=== PATIENT | male | born 1955 | race Native Hawaiian/Other Pacific Islander ===

== ENCOUNTER 2017-01-25 08:20 | Emergency (ER) | payer OTHER ==
[~2017-01-25] VITALS: Ht 167.6 cm; Wt 104.3 kg
[2017-01-25 08:23] VITALS: TEMP 97.8
[2017-01-25] MEDS ORDERED: WARF5TAB6 PO (08:47)
[2017-01-25] MEDS ORDERED: K-TAB20 MEQ PO (08:48)
[2017-01-25] MEDS ORDERED: LIPITOR10 MG PO (08:49)
[2017-01-25] MEDS ORDERED: LANOXIN 0.120.125 M1 OR (08:50)
[2017-01-25] MEDS ORDERED: CARV12.5 PO (08:50)
[2017-01-25] MEDS ORDERED: PACERONE200 MG OR (08:54)
[2017-01-25 08:57] LABS: PLATELET COUNT 197 K/uL (142-355)
[2017-01-25 09:08] LABS: POTASSIUM 4.2 mmol/L (3.6-5.2); SODIUM 140 mmol/L (136-145)
[2017-01-25 09:32] VITALS: BP 121/92
== END 2017-01-25 09:45 | disposition home or self-care (01) ==
LOC: ED 08:20
DX: I50.9 Heart failure, unspecified (principal); I48.91 Unspecified atrial fibrillation; I44.7 Left bundle-branch block, unspecified
CPT/HCPCS: 36415; 80053; 81000; 83880; 85027; 93005; 99283

== ENCOUNTER 2017-08-19 19:05 | Inpatient (IN) | payer OTHER ==
[~2017-08-19] VITALS: Ht 152.4 cm; Wt 98.6 kg
[~2017-08-19 19:05] MED LIST: CARV12.5 PO; K-TAB20 MEQ PO; LANOXIN 0.120.125 M1 OR; LIPITOR10 MG PO; PACERONE200 MG OR; WARF5TAB6 PO
[2017-08-19 19:11] VITALS: BP 109/86; TEMP 97.9
[2017-08-19] MEDS ORDERED: FUROSEMIDE40 MG PO (19:23)
[2017-08-19] MEDS ORDERED: OMEPRAZOLE20 M2 PO (19:24)
[2017-08-19 19:47] LABS: PLATELET COUNT 192 K/uL (142-355)
[2017-08-19 19:56] LABS: POTASSIUM 4.3 mmol/L (3.6-5.2)
[2017-08-19 23:00] VITALS: BP 109/88
[2017-08-19 23:53] VITALS: BP 112/91; TEMP 97.7; Ht 152.4 cm; Wt 98.6 kg
[2017-08-20] VITALS (18 sets, daily range): BP systolic 90–137; BP diastolic 56–87; TEMP 97–98.9
[2017-08-20 06:42] LABS: POTASSIUM 3.5 mmol/L (3.6-5.2); SODIUM 138 mmol/L (136-145)
[2017-08-21 04:00] VITALS: BP 113/79; TEMP 97.9
[2017-08-21 07:52] LABS: POTASSIUM 3.9 mmol/L (3.6-5.2)
[2017-08-21 07:57] VITALS: BP 109/83; TEMP 97.6
[2017-08-21 11:51] VITALS: BP 93/73; TEMP 97.8
[2017-08-21 16:00] VITALS: BP 97/66; TEMP 97.6
[2017-08-21 20:00] VITALS: BP 86/58; TEMP 97.6
[2017-08-21 23:57] VITALS: BP 100/70; TEMP 97.7
[2017-08-22 04:00] VITALS: BP 98/70; TEMP 97.6
[2017-08-22 07:52] VITALS: BP 114/78; TEMP 97.6
[2017-08-22 10:36] LABS: PLATELET COUNT 197 K/uL (142-355)
[2017-08-22 12:22] VITALS: BP 96/62; TEMP 97.3
[2017-08-22 16:00] VITALS: BP 93/71; TEMP 97.5
[2017-08-22 20:00] VITALS: BP 96/68; TEMP 97.5
[2017-08-23] VITALS: BP 100/70; TEMP 97.7
[2017-08-23 04:00] VITALS: BP 95/71; TEMP 98.8
[2017-08-23 07:41] VITALS: BP 107/81; TEMP 97.7
== END 2017-08-23 12:40 | disposition home or self-care (01) | DRG 293 ==
LOC: ED 19:05 → ICU 21:00 → MED/SURG 08-20 14:45
PROVIDERS: Specialist
DX: I50.31 Acute diastolic (congestive) heart failure (principal); I48.91 Unspecified atrial fibrillation; I10 Essential (primary) hypertension
CPT/HCPCS: 36415; 36600; 80048; 80053; 82550; 82805; 83735; 83880; 84443; 84484; 85027; 85610; 94760; 96372; 96374; 99285; J1940; J3430

== ENCOUNTER 2017-08-28 11:35 | Inpatient (IN) | payer OTHER ==
[~2017-08-28] VITALS: Ht 162.6 cm; Wt 98.0 kg
[~2017-08-28 11:35] MED LIST changes: +FUROSEMIDE40 MG PO; +OMEPRAZOLE20 M2 PO
[2017-08-28 11:45] VITALS: BP 93/62; TEMP 97.8
[2017-08-28 12:42] LABS: PLATELET COUNT 219 K/uL (142-355)
[2017-08-28 12:45] VITALS: BP 104/58
[2017-08-28 12:54] LABS: POTASSIUM 4.6 mmol/L (3.6-5.2)
[2017-08-28 13:45] VITALS: BP 106/60
[2017-08-28 15:48] VITALS: BP 104/78; TEMP 98.2; Ht 162.6 cm; Wt 98.0 kg
[2017-08-28 20:00] VITALS: BP 109/74; TEMP 97.6
[2017-08-29 00:29] VITALS: BP 101/78; TEMP 97.5
[2017-08-29 04:22] VITALS: BP 106/89; TEMP 98
[2017-08-29 06:38] LABS: POTASSIUM 4.5 mmol/L (3.6-5.2)
[2017-08-29 07:30] VITALS: BP 127/90; TEMP 97.9
[2017-08-29 12:45] VITALS: BP 98/65; TEMP 97.7
[2017-08-29 17:11] VITALS: BP 94/65; TEMP 98.4
[2017-08-29 20:00] VITALS: BP 98/67; TEMP 97.8
[2017-08-30 00:11] VITALS: BP 91/74; TEMP 98.2
[2017-08-30 04:25] VITALS: BP 95/52; TEMP 97.9
[2017-08-30 06:39] LABS: POTASSIUM 4.8 mmol/L (3.6-5.2)
[2017-08-30 20:00] VITALS: BP 87/63; TEMP 97.6
[2017-08-30 23:56] VITALS: BP 100/66; TEMP 98.4
[2017-08-31 04:00] VITALS: BP 98/64; TEMP 98.3
[2017-08-31 07:12] LABS: POTASSIUM 3.7 mmol/L (3.6-5.2)
[2017-08-31 08:50] VITALS: BP 96/59; TEMP 98.4
[2017-08-31] MEDS ORDERED: CARV3.12 PO (14:24)
== END 2017-08-31 15:05 | disposition home or self-care (01) | DRG 293 ==
LOC: ED 11:35 → MED/SURG 13:20
DX: I50.33 Acute on chronic diastolic (congestive) heart failure (principal); Z91.14 Patient's other noncompliance with medication regimen; I25.2 Old myocardial infarction; I48.91 Unspecified atrial fibrillation; K21.9 Gastro-esophageal reflux disease without esophagitis; I10 Essential (primary) hypertension
CPT/HCPCS: 36415; 80048; 80053; 83735; 83880; 85027; 85610; 93005; 96374; 96375; 99284; J1650; J1940; J3490

== ENCOUNTER 2017-10-08 08:44 | Outpatient (CLI) | payer OTHER ==
[~2017-10-08 08:44] MED LIST changes: +CARV3.12 PO
== END 2017-10-08 19:20 | disposition home or self-care (01) ==
LOC: LABW 08:44
DX: Z79.01 Long term (current) use of anticoagulants (principal); Z51.81 Encounter for therapeutic drug level monitoring; I48.0 Paroxysmal atrial fibrillation
CPT/HCPCS: 36415; 85610

== ENCOUNTER 2017-10-15 08:10 | Outpatient (CLI) | payer OTHER | END 2017-10-15 22:24 | disposition home or self-care (01) | LOC: LABW 08:10 | DX: Z79.01 Long term (current) use of anticoagulants (principal); Z51.81 Encounter for therapeutic drug level monitoring; I48.0 Paroxysmal atrial fibrillation | CPT/HCPCS: 36415; 85610 ==

== ENCOUNTER 2017-10-20 07:54 | Outpatient (CLI) | payer OTHER | END 2017-10-20 21:45 | disposition home or self-care (01) | LOC: RESP 07:54 | DX: I42.8 Other cardiomyopathies (principal) | CPT/HCPCS: 93225; 93306 ==

== ENCOUNTER 2017-10-22 07:58 | Outpatient (CLI) | payer OTHER | END 2017-10-22 19:11 | disposition home or self-care (01) | LOC: LABW 07:58 | DX: Z79.01 Long term (current) use of anticoagulants (principal); I48.0 Paroxysmal atrial fibrillation; Z51.81 Encounter for therapeutic drug level monitoring | CPT/HCPCS: 36415; 85610 ==

== ENCOUNTER 2017-10-29 08:00 | Outpatient (CLI) | payer OTHER | END 2017-10-29 22:12 | disposition home or self-care (01) | LOC: LABW 08:00 | DX: Z79.01 Long term (current) use of anticoagulants (principal); Z51.81 Encounter for therapeutic drug level monitoring; I48.0 Paroxysmal atrial fibrillation | CPT/HCPCS: 36415; 85610 ==

== ENCOUNTER 2017-11-05 07:59 | Outpatient (CLI) | payer OTHER | END 2017-11-05 22:43 | disposition home or self-care (01) | LOC: LABW 07:59 | DX: Z79.01 Long term (current) use of anticoagulants (principal); Z51.81 Encounter for therapeutic drug level monitoring; I48.0 Paroxysmal atrial fibrillation | CPT/HCPCS: 36415; 85610 ==

== ENCOUNTER 2017-11-12 08:07 | Outpatient (CLI) | payer OTHER | END 2017-11-12 22:34 | disposition home or self-care (01) | LOC: LABW 08:07 | DX: Z79.01 Long term (current) use of anticoagulants (principal); Z51.81 Encounter for therapeutic drug level monitoring; I48.0 Paroxysmal atrial fibrillation | CPT/HCPCS: 36415; 85610 ==

== ENCOUNTER 2017-11-19 14:07 | Outpatient (CLI) | payer OTHER | END 2017-11-19 19:26 | disposition home or self-care (01) | LOC: LABW 14:07 | DX: Z79.01 Long term (current) use of anticoagulants (principal); Z51.81 Encounter for therapeutic drug level monitoring; I48.0 Paroxysmal atrial fibrillation | CPT/HCPCS: 36415; 85610 ==

== ENCOUNTER 2017-12-03 08:40 | Outpatient (CLI) | payer OTHER | END 2017-12-03 19:11 | disposition home or self-care (01) | LOC: LABW 08:40 | DX: Z79.01 Long term (current) use of anticoagulants (principal); I48.0 Paroxysmal atrial fibrillation; Z51.81 Encounter for therapeutic drug level monitoring | CPT/HCPCS: 36415; 85610 ==

== ENCOUNTER 2017-12-18 09:08 | Outpatient (CLI) | payer OTHER | END 2017-12-18 19:05 | disposition home or self-care (01) | LOC: LABW 09:08 | DX: I48.0 Paroxysmal atrial fibrillation (principal); Z79.01 Long term (current) use of anticoagulants | CPT/HCPCS: 36415; 85610 ==

== ENCOUNTER 2017-12-24 09:06 | Outpatient (CLI) | payer OTHER | END 2017-12-24 19:06 | disposition home or self-care (01) | LOC: LABW 09:06 | DX: Z79.01 Long term (current) use of anticoagulants (principal); I48.0 Paroxysmal atrial fibrillation; Z51.81 Encounter for therapeutic drug level monitoring | CPT/HCPCS: 36415; 85610 ==

== ENCOUNTER 2017-12-31 07:46 | Outpatient (CLI) | payer OTHER | END 2017-12-31 19:06 | disposition home or self-care (01) | LOC: LABW 07:46 | DX: Z79.01 Long term (current) use of anticoagulants (principal); Z51.81 Encounter for therapeutic drug level monitoring; I48.0 Paroxysmal atrial fibrillation | CPT/HCPCS: 36415; 85610 ==

== ENCOUNTER 2018-01-07 09:02 | Outpatient (CLI) | payer OTHER | END 2018-01-07 22:03 | disposition home or self-care (01) | LOC: LABW 09:02 | DX: Z79.01 Long term (current) use of anticoagulants (principal); I48.0 Paroxysmal atrial fibrillation; Z51.81 Encounter for therapeutic drug level monitoring | CPT/HCPCS: 36415; 85610 ==

== ENCOUNTER 2018-01-12 12:26 | Outpatient (CLI) | payer OTHER | END 2018-01-12 22:44 | disposition home or self-care (01) | LOC: LABW 12:26 | PROVIDERS: Nurse Practitioner Adult Health | DX: E78.2 Mixed hyperlipidemia (principal); Z79.899 Other long term (current) drug therapy; Z51.81 Encounter for therapeutic drug level monitoring; I48.0 Paroxysmal atrial fibrillation | CPT/HCPCS: 36415; 80061; 80076; 84436; 84443; 84479 ==

== ENCOUNTER 2018-01-14 08:58 | Outpatient (CLI) | payer OTHER | END 2018-01-14 22:30 | disposition home or self-care (01) | LOC: LABW 08:58 | DX: Z79.01 Long term (current) use of anticoagulants (principal); Z51.81 Encounter for therapeutic drug level monitoring; I48.0 Paroxysmal atrial fibrillation | CPT/HCPCS: 36415; 85610 ==

== ENCOUNTER 2018-01-21 08:03 | Outpatient (CLI) | payer OTHER | END 2018-01-21 19:42 | disposition home or self-care (01) | LOC: LABW 08:03 | DX: Z79.01 Long term (current) use of anticoagulants (principal); I48.0 Paroxysmal atrial fibrillation; Z51.81 Encounter for therapeutic drug level monitoring | CPT/HCPCS: 36415; 85610 ==

== ENCOUNTER 2018-01-28 10:13 | Outpatient (CLI) | payer OTHER | END 2018-01-28 19:45 | disposition home or self-care (01) | LOC: LABW 10:13 | DX: I48.0 Paroxysmal atrial fibrillation (principal); Z79.01 Long term (current) use of anticoagulants | CPT/HCPCS: 36415; 85610 ==

== ENCOUNTER 2018-02-04 08:50 | Outpatient (CLI) | payer OTHER | END 2018-02-04 19:51 | disposition home or self-care (01) | LOC: LABW 08:50 | DX: I48.0 Paroxysmal atrial fibrillation (principal); Z79.01 Long term (current) use of anticoagulants | CPT/HCPCS: 36415; 85610 ==

== ENCOUNTER 2018-02-11 09:27 | Outpatient (CLI) | payer OTHER | END 2018-02-11 19:38 | disposition home or self-care (01) | LOC: LABW 09:27 | DX: I48.0 Paroxysmal atrial fibrillation (principal); Z79.01 Long term (current) use of anticoagulants | CPT/HCPCS: 36415; 85610 ==

== ENCOUNTER 2018-02-18 08:56 | Outpatient (CLI) | payer OTHER | END 2018-02-18 22:40 | disposition home or self-care (01) | LOC: LABW 08:56 | DX: Z79.01 Long term (current) use of anticoagulants (principal); I48.0 Paroxysmal atrial fibrillation | CPT/HCPCS: 36415; 85610 ==

== ENCOUNTER 2018-02-21 09:20 | Outpatient (CLI) | payer OTHER | END 2018-02-21 20:38 | disposition home or self-care (01) | LOC: LABW 09:20 | DX: Z79.01 Long term (current) use of anticoagulants (principal); I48.0 Paroxysmal atrial fibrillation | CPT/HCPCS: 36415; 85610 ==

== ENCOUNTER 2018-02-25 09:36 | Outpatient (CLI) | payer OTHER | END 2018-02-25 19:22 | disposition home or self-care (01) | LOC: LABW 09:36 | DX: I48.0 Paroxysmal atrial fibrillation (principal); Z79.01 Long term (current) use of anticoagulants | CPT/HCPCS: 36415; 85610 ==

== ENCOUNTER 2018-03-04 09:04 | Outpatient (CLI) | payer OTHER | END 2018-03-04 23:24 | disposition home or self-care (01) | LOC: LABW 09:04 | DX: I48.0 Paroxysmal atrial fibrillation (principal); Z79.01 Long term (current) use of anticoagulants | CPT/HCPCS: 36415; 85610 ==

== ENCOUNTER 2018-03-11 08:36 | Outpatient (CLI) | payer OTHER | END 2018-03-11 19:35 | disposition home or self-care (01) | LOC: LABW 08:36 | DX: I48.0 Paroxysmal atrial fibrillation (principal); Z79.01 Long term (current) use of anticoagulants | CPT/HCPCS: 36415; 85610 ==

== ENCOUNTER 2018-03-18 09:10 | Outpatient (CLI) | payer OTHER | END 2018-03-18 22:16 | disposition home or self-care (01) | LOC: LABW 09:10 | DX: I48.0 Paroxysmal atrial fibrillation (principal); Z79.01 Long term (current) use of anticoagulants | CPT/HCPCS: 36415; 85610 ==

== ENCOUNTER 2018-03-25 08:41 | Outpatient (CLI) | payer OTHER | END 2018-03-25 19:04 | disposition home or self-care (01) | LOC: LABW 08:41 | DX: I48.0 Paroxysmal atrial fibrillation (principal); Z79.01 Long term (current) use of anticoagulants | CPT/HCPCS: 36415; 85610 ==

== ENCOUNTER 2018-07-12 10:42 | Outpatient (CLI) | payer OTHER | END 2018-07-12 23:42 | disposition home or self-care (01) | LOC: LABW 10:42 | DX: I48.0 Paroxysmal atrial fibrillation (principal); Z79.01 Long term (current) use of anticoagulants | CPT/HCPCS: 36415; 85610 ==

== ENCOUNTER 2018-07-22 07:49 | Outpatient (CLI) | payer OTHER | END 2018-07-22 18:55 | disposition home or self-care (01) | LOC: LABW 07:49 | PROVIDERS: Nurse Practitioner Adult Health | DX: E78.2 Mixed hyperlipidemia (principal); Z79.899 Other long term (current) drug therapy; Z79.01 Long term (current) use of anticoagulants; I48.0 Paroxysmal atrial fibrillation | CPT/HCPCS: 36415; 80061; 80076; 85610 ==

== ENCOUNTER 2018-07-29 10:59 | Outpatient (CLI) | payer OTHER | END 2018-07-29 22:51 | disposition home or self-care (01) | LOC: LABW 10:59 | DX: I48.0 Paroxysmal atrial fibrillation (principal); Z79.01 Long term (current) use of anticoagulants | CPT/HCPCS: 36415; 85610 ==

== ENCOUNTER 2018-08-19 09:08 | Outpatient (CLI) | payer OTHER | END 2018-08-19 19:38 | disposition home or self-care (01) | LOC: LABW 09:08 | DX: I48.0 Paroxysmal atrial fibrillation (principal); Z79.01 Long term (current) use of anticoagulants | CPT/HCPCS: 36415; 85610 ==

== ENCOUNTER 2018-08-26 08:27 | Outpatient (CLI) | payer OTHER | END 2018-08-26 22:21 | disposition home or self-care (01) | LOC: LABW 08:27 | DX: I48.0 Paroxysmal atrial fibrillation (principal); Z79.01 Long term (current) use of anticoagulants | CPT/HCPCS: 36415; 85610 ==

== ENCOUNTER 2018-08-29 09:25 | Outpatient (CLI) | payer OTHER ==
[~2018-08-29 09:25] MED LIST changes: -LIPITOR10 MG PO; +LIPITOR20 MG PO
[2018-08-30] MEDS ORDERED: DIGOX125 MCG PO (18:56)
[2018-08-30] MEDS ORDERED: COZAAR25 MG PO (18:58)
[2018-08-30] MEDS ORDERED: POTASSIUM CHLO10 MEQ PO (18:58)
[2018-08-30] MEDS ORDERED: CARV6.25 PO (18:58)
== END 2018-08-29 21:49 | disposition home or self-care (01) ==
LOC: LABW 09:25
DX: I48.0 Paroxysmal atrial fibrillation (principal); Z79.01 Long term (current) use of anticoagulants
CPT/HCPCS: 36415; 85610

== ENCOUNTER 2018-08-30 18:24 | Emergency (ER) | payer OTHER ==
[~2018-08-30] VITALS: Ht 162.6 cm; Wt 104.3 kg
[2018-08-30] MEDS ORDERED: DIGOX125 MCG PO (18:56)
[2018-08-30] MEDS ORDERED: CARV6.25 PO (18:58)
[2018-08-30] MEDS ORDERED: COZAAR25 MG PO (18:58)
[2018-08-30] MEDS ORDERED: POTASSIUM CHLO10 MEQ PO (18:58)
[2018-08-30 20:22] LABS: PLATELET COUNT 213 K/uL (142-355)
[2018-08-30 20:37] LABS: POTASSIUM 4.4 mmol/L (3.6-5.2); SODIUM 140 mmol/L (136-145)
[2018-08-30 21:09] VITALS: BP 98/72; TEMP 98.5
== END 2018-08-30 21:19 | disposition home or self-care (01) ==
LOC: ED 18:24
PROVIDERS: Family Medicine
DX: J18.9 Pneumonia, unspecified organism (principal); R05 Cough; I48.91 Unspecified atrial fibrillation; I44.7 Left bundle-branch block, unspecified
CPT/HCPCS: 80053; 82550; 83880; 84484; 85027; 93005; 96372; 99283; J0696

== ENCOUNTER 2018-09-02 08:29 | Outpatient (CLI) | payer OTHER ==
[~2018-09-02 08:29] MED LIST changes: +CARV6.25 PO; +COZAAR25 MG PO; +DIGOX125 MCG PO; +POTASSIUM CHLO10 MEQ PO
== END 2018-09-02 19:07 | disposition home or self-care (01) ==
LOC: LABW 08:29
DX: I48.0 Paroxysmal atrial fibrillation (principal); Z79.01 Long term (current) use of anticoagulants
CPT/HCPCS: 36415; 85610

== ENCOUNTER 2018-09-09 08:20 | Outpatient (CLI) | payer OTHER | END 2018-09-09 23:59 | disposition home or self-care (01) | LOC: LABW 08:20 | DX: I48.0 Paroxysmal atrial fibrillation (principal); Z79.01 Long term (current) use of anticoagulants | CPT/HCPCS: 36415; 85610 ==

== ENCOUNTER 2018-09-16 10:13 | Outpatient (CLI) | payer OTHER | END 2018-09-16 19:49 | disposition home or self-care (01) | LOC: LABW 10:13 | DX: Z79.01 Long term (current) use of anticoagulants (principal); I48.0 Paroxysmal atrial fibrillation | CPT/HCPCS: 36415; 85610 ==

== ENCOUNTER 2018-09-23 10:05 | Outpatient (CLI) | payer OTHER | END 2018-09-23 22:28 | disposition home or self-care (01) | LOC: LABW 10:05 | DX: Z79.01 Long term (current) use of anticoagulants (principal); I48.0 Paroxysmal atrial fibrillation | CPT/HCPCS: 36415; 85610 ==

== ENCOUNTER 2018-10-21 08:29 | Outpatient (CLI) | payer OTHER | END 2018-10-21 22:34 | disposition home or self-care (01) | LOC: LABW 08:29 | DX: Z79.01 Long term (current) use of anticoagulants (principal); I48.0 Paroxysmal atrial fibrillation | CPT/HCPCS: 36415; 85610 ==

== ENCOUNTER 2018-11-04 09:05 | Outpatient (CLI) | payer OTHER | END 2018-11-04 23:18 | disposition home or self-care (01) | LOC: LABW 09:05 | DX: Z79.01 Long term (current) use of anticoagulants (principal); I48.0 Paroxysmal atrial fibrillation | CPT/HCPCS: 36415; 85610 ==

== ENCOUNTER 2018-11-07 02:29 | Outpatient (CLI) | payer OTHER | END 2018-11-07 03:00 | disposition short-term general hospital (02) | LOC: AMB 02:29 | DX: R00.1 Bradycardia, unspecified (principal); R07.89 Other chest pain | CPT/HCPCS: A0425; A0429 ==

== ENCOUNTER 2018-11-18 08:22 | Outpatient (CLI) | payer OTHER | END 2018-11-18 23:17 | disposition home or self-care (01) | LOC: LABW 08:22 | DX: I48.0 Paroxysmal atrial fibrillation (principal); Z79.01 Long term (current) use of anticoagulants | CPT/HCPCS: 36415; 85610 ==

== ENCOUNTER 2018-11-25 09:41 | Outpatient (CLI) | payer OTHER | END 2018-11-25 19:21 | disposition home or self-care (01) | LOC: LABW 09:41 | DX: I48.0 Paroxysmal atrial fibrillation (principal); Z79.01 Long term (current) use of anticoagulants | CPT/HCPCS: 36415; 85610 ==

== ENCOUNTER 2018-12-05 18:50 | Emergency (ER) | payer OTHER ==
[~2018-12-05] VITALS: Ht 162.6 cm; Wt 99.3 kg
[2018-12-05 19:56] LABS: PLATELET COUNT 164 K/uL (142-355)
[2018-12-05 21:23] LABS: POTASSIUM 4.7 mmol/L (3.6-5.2); SODIUM 144 mmol/L (136-145)
[2018-12-05 21:34] LABS: PARTIAL THROMBOPLASTIN TIME 39.7 SECONDS (24.5-33.6)
[2018-12-05 23:50] VITALS: BP 126/80; TEMP 97.8
== END 2018-12-05 23:50 | disposition home or self-care (01) ==
LOC: ED 18:50
PROVIDERS: Emergency Medicine
DX: I50.9 Heart failure, unspecified (principal); I48.91 Unspecified atrial fibrillation
CPT/HCPCS: 36415; 80053; 80162; 81000; 82550; 84484; 85027; 85610; 85730; 93005; 96374; 99284; J1940

== ENCOUNTER 2018-12-09 08:07 | Outpatient (CLI) | payer OTHER | END 2018-12-09 19:10 | disposition home or self-care (01) | LOC: LABW 08:07 | DX: I48.0 Paroxysmal atrial fibrillation (principal); Z79.01 Long term (current) use of anticoagulants | CPT/HCPCS: 36415; 85610 ==

== ENCOUNTER 2018-12-16 09:43 | Outpatient (CLI) | payer OTHER | END 2018-12-16 23:32 | disposition home or self-care (01) | LOC: LABW 09:43 | DX: I48.0 Paroxysmal atrial fibrillation (principal); Z79.01 Long term (current) use of anticoagulants | CPT/HCPCS: 36415; 85610 ==

== ENCOUNTER 2018-12-23 08:30 | Outpatient (CLI) | payer OTHER | END 2018-12-23 19:06 | disposition home or self-care (01) | LOC: LABW 08:30 | DX: Z79.01 Long term (current) use of anticoagulants (principal); I48.0 Paroxysmal atrial fibrillation | CPT/HCPCS: 36415; 85610 ==

== ENCOUNTER 2019-01-06 08:28 | Outpatient (CLI) | payer OTHER | END 2019-01-06 23:36 | disposition home or self-care (01) | LOC: LABW 08:28 | DX: I48.0 Paroxysmal atrial fibrillation (principal); Z79.899 Other long term (current) drug therapy | CPT/HCPCS: 36415; 85610 ==

== ENCOUNTER 2019-01-13 09:48 | Outpatient (CLI) | payer OTHER | END 2019-01-13 23:48 | disposition home or self-care (01) | LOC: LABW 09:48 | DX: I48.0 Paroxysmal atrial fibrillation (principal); Z79.01 Long term (current) use of anticoagulants; Z79.899 Other long term (current) drug therapy | CPT/HCPCS: 36415; 85610 ==

== ENCOUNTER 2019-01-20 08:36 | Outpatient (CLI) | payer OTHER | END 2019-01-20 19:07 | disposition home or self-care (01) | LOC: LABW 08:36 | DX: I48.0 Paroxysmal atrial fibrillation (principal); Z79.899 Other long term (current) drug therapy | CPT/HCPCS: 36415; 85610 ==

== ENCOUNTER 2019-01-27 09:21 | Outpatient (CLI) | payer OTHER | END 2019-01-27 21:40 | disposition home or self-care (01) | LOC: LABW 09:21 | DX: I48.0 Paroxysmal atrial fibrillation (principal); Z79.899 Other long term (current) drug therapy | CPT/HCPCS: 36415; 85610 ==

== ENCOUNTER 2019-02-03 09:07 | Outpatient (CLI) | payer OTHER | END 2019-02-03 23:41 | disposition home or self-care (01) | LOC: LABW 09:07 | DX: I48.0 Paroxysmal atrial fibrillation (principal); Z79.899 Other long term (current) drug therapy | CPT/HCPCS: 36415; 85610 ==

== ENCOUNTER 2019-02-10 09:23 | Outpatient (CLI) | payer OTHER | END 2019-02-10 23:59 | disposition home or self-care (01) | LOC: LABW 09:23 | DX: I48.0 Paroxysmal atrial fibrillation (principal); Z79.899 Other long term (current) drug therapy | CPT/HCPCS: 36415; 85610 ==

== ENCOUNTER 2019-02-17 08:53 | Outpatient (CLI) | payer OTHER | END 2019-02-17 21:00 | disposition home or self-care (01) | LOC: LAB 08:53 | DX: I48.0 Paroxysmal atrial fibrillation (principal); Z79.899 Other long term (current) drug therapy | CPT/HCPCS: 36415; 85610 ==

== ENCOUNTER 2019-02-24 11:08 | Outpatient (CLI) | payer OTHER | END 2019-02-24 21:48 | disposition home or self-care (01) | LOC: LABW 11:08 | DX: I48.0 Paroxysmal atrial fibrillation (principal); Z79.899 Other long term (current) drug therapy | CPT/HCPCS: 36415; 85610 ==

== ENCOUNTER 2019-03-10 11:58 | Outpatient (CLI) | payer OTHER | END 2019-03-10 22:55 | disposition home or self-care (01) | LOC: LABW 11:58 | DX: I48.0 Paroxysmal atrial fibrillation (principal); Z79.01 Long term (current) use of anticoagulants; Z79.899 Other long term (current) drug therapy | CPT/HCPCS: 36415; 85610 ==

== ENCOUNTER 2019-03-13 08:05 | Outpatient (CLI) | payer OTHER | END 2019-03-13 20:21 | disposition home or self-care (01) | LOC: LABW 08:05 | PROVIDERS: Nurse Practitioner Adult Health | DX: E78.2 Mixed hyperlipidemia (principal) | CPT/HCPCS: 36415; 80061; 80076 ==

== ENCOUNTER 2019-03-17 11:47 | Outpatient (CLI) | payer OTHER | END 2019-03-17 19:21 | disposition home or self-care (01) | LOC: LABW 11:47 | DX: I48.0 Paroxysmal atrial fibrillation (principal); Z79.899 Other long term (current) drug therapy | CPT/HCPCS: 36415; 85610 ==

== ENCOUNTER 2019-03-24 08:31 | Outpatient (CLI) | payer OTHER | END 2019-03-24 22:17 | disposition home or self-care (01) | LOC: LABW 08:31 | DX: I48.0 Paroxysmal atrial fibrillation (principal); Z79.899 Other long term (current) drug therapy | CPT/HCPCS: 36415; 85610 ==

== ENCOUNTER 2019-03-31 07:56 | Outpatient (CLI) | payer OTHER | END 2019-03-31 22:01 | disposition home or self-care (01) | LOC: LAB 07:56 | DX: I48.0 Paroxysmal atrial fibrillation (principal); Z79.899 Other long term (current) drug therapy | CPT/HCPCS: 36415; 85610 ==

== ENCOUNTER 2019-04-07 09:50 | Outpatient (CLI) | payer OTHER | END 2019-04-07 19:51 | disposition home or self-care (01) | LOC: LABW 09:50 | DX: I48.0 Paroxysmal atrial fibrillation (principal); Z79.899 Other long term (current) drug therapy | CPT/HCPCS: 36415; 85610 ==

== ENCOUNTER 2019-04-21 09:14 | Outpatient (CLI) | payer OTHER | END 2019-04-21 21:54 | disposition home or self-care (01) | LOC: LABW 09:14 | DX: I48.0 Paroxysmal atrial fibrillation (principal); Z79.899 Other long term (current) drug therapy | CPT/HCPCS: 36415; 85610 ==

== ENCOUNTER 2019-04-28 10:48 | Outpatient (CLI) | payer OTHER | END 2019-04-28 22:25 | disposition home or self-care (01) | LOC: LABW 10:48 | DX: I48.0 Paroxysmal atrial fibrillation (principal); Z79.899 Other long term (current) drug therapy | CPT/HCPCS: 36415; 85610 ==

== ENCOUNTER 2019-05-05 08:16 | Outpatient (CLI) | payer OTHER | END 2019-05-05 22:15 | disposition home or self-care (01) | LOC: LABW 08:16 | DX: I48.0 Paroxysmal atrial fibrillation (principal); Z79.899 Other long term (current) drug therapy | CPT/HCPCS: 36415; 85610 ==

== ENCOUNTER 2019-05-12 08:44 | Outpatient (CLI) | payer OTHER | END 2019-05-12 19:07 | disposition home or self-care (01) | LOC: LABW 08:44 | DX: I48.0 Paroxysmal atrial fibrillation (principal); Z79.899 Other long term (current) drug therapy | CPT/HCPCS: 36415; 85610 ==

== ENCOUNTER 2019-06-23 09:50 | Outpatient (CLI) | payer OTHER | END 2019-06-23 22:39 | disposition home or self-care (01) | LOC: LABW 09:50 | DX: I48.0 Paroxysmal atrial fibrillation (principal); Z79.899 Other long term (current) drug therapy | CPT/HCPCS: 36415; 85610 ==

== ENCOUNTER 2019-06-30 08:20 | Outpatient (CLI) | payer OTHER | END 2019-06-30 19:28 | disposition home or self-care (01) | LOC: LABW 08:20 | DX: I48.0 Paroxysmal atrial fibrillation (principal); Z79.899 Other long term (current) drug therapy | CPT/HCPCS: 36415; 85610 ==

== ENCOUNTER 2019-07-07 08:03 | Outpatient (CLI) | payer OTHER | END 2019-07-07 08:04 | disposition home or self-care (01) | LOC: LABW 08:03 | PROVIDERS: Nurse Practitioner | DX: E78.2 Mixed hyperlipidemia (principal); I48.0 Paroxysmal atrial fibrillation; Z79.899 Other long term (current) drug therapy | CPT/HCPCS: 36415; 80061; 80076; 84436; 84443; 84479; 85610 ==

== ENCOUNTER 2019-07-21 07:45 | Outpatient (CLI) | payer OTHER | END 2019-07-21 19:21 | disposition home or self-care (01) | LOC: LABW 07:45 | DX: I48.0 Paroxysmal atrial fibrillation (principal); Z79.899 Other long term (current) drug therapy | CPT/HCPCS: 36415; 85610 ==

== ENCOUNTER 2019-07-28 07:48 | Outpatient (CLI) | payer OTHER | END 2019-07-28 19:37 | disposition home or self-care (01) | LOC: LABW 07:48 | DX: I48.0 Paroxysmal atrial fibrillation (principal); Z79.899 Other long term (current) drug therapy | CPT/HCPCS: 36415; 85610 ==

== ENCOUNTER 2019-08-25 07:49 | Outpatient (CLI) | payer OTHER | END 2019-08-25 19:05 | disposition home or self-care (01) | LOC: LABW 07:49 | DX: Z79.899 Other long term (current) drug therapy (principal); I48.0 Paroxysmal atrial fibrillation | CPT/HCPCS: 36415; 85610 ==

== ENCOUNTER 2020-02-10 10:20 | Outpatient (CLI) | payer OTHER | END 2020-02-10 18:49 | disposition home or self-care (01) | LOC: LABW 10:20 | DX: I48.0 Paroxysmal atrial fibrillation (principal); Z79.899 Other long term (current) drug therapy | CPT/HCPCS: 36415; 85610 ==

== ENCOUNTER 2020-02-12 08:51 | Outpatient (CLI) | payer OTHER | END 2020-02-12 20:28 | disposition home or self-care (01) | LOC: LABW 08:51 | PROVIDERS: Nurse Practitioner Adult Health | DX: E78.2 Mixed hyperlipidemia (principal); Z79.899 Other long term (current) drug therapy | CPT/HCPCS: 36415; 80048; 80061; 80076; 84436; 84443; 84479 ==

== ENCOUNTER 2020-02-20 08:13 | Outpatient (CLI) | payer OTHER ==
[~2020-02-20] VITALS: Ht 167.6 cm; Wt 95.3 kg
== END 2020-02-20 20:03 | disposition home or self-care (01) ==
LOC: NM 08:13
DX: R53.83 Other fatigue (principal); I42.0 Dilated cardiomyopathy; I34.0 Nonrheumatic mitral (valve) insufficiency; I50.23 Acute on chronic systolic (congestive) heart failure
CPT/HCPCS: A9500; J2785

== ENCOUNTER 2020-02-21 09:53 | Outpatient (CLI) | payer OTHER | END 2020-02-21 22:00 | disposition home or self-care (01) | LOC: RESP 09:53 | DX: I34.0 Nonrheumatic mitral (valve) insufficiency (principal); I10 Essential (primary) hypertension; I42.0 Dilated cardiomyopathy ==

== ENCOUNTER 2020-04-10 15:04 | Emergency (ER) | payer OTHER ==
[~2020-04-10] VITALS: Ht 162.6 cm; Wt 93.4 kg
[2020-04-10 15:11] VITALS: BP 104/70; TEMP 99.6
[2020-04-10 16:00] LABS: PLATELET COUNT 205 K/uL (142-355)
[2020-04-10 16:10] LABS: POTASSIUM 4.1 mmol/L (3.6-5.2); SODIUM 140 mmol/L (136-145)
== END 2020-04-10 16:50 | disposition home or self-care (01) ==
LOC: ED 15:04
PROVIDERS: Family Medicine
DX: I50.9 Heart failure, unspecified (principal)
CPT/HCPCS: 80053; 82550; 82553; 83605; 83880; 84484; 85027; 85379; 93005; 99283

== ENCOUNTER 2020-04-30 18:58 | Emergency (ER) | payer OTHER ==
[~2020-04-30] VITALS: Ht 162.6 cm; Wt 87.5 kg
[2020-04-30 20:45] VITALS: BP 118/60; TEMP 97.8
== END 2020-04-30 20:45 | disposition home or self-care (01) ==
LOC: ED 18:58
DX: S80.12XA Contusion of left lower leg, initial encounter (principal); W22.8XXA Striking against or struck by other objects, initial encounter; Y92.89 Other specified places as the place of occurrence of the external cause
CPT/HCPCS: 99282; 99283

== ENCOUNTER 2020-05-14 11:32 | Outpatient (CLI) | payer OTHER ==
[2020-05-14 13:21] LABS: POTASSIUM 3.9 mmol/L (3.6-5.2)
== END 2020-05-14 22:39 | disposition home or self-care (01) ==
LOC: LABW 11:32
PROVIDERS: ATTEND Nurse Practitioner Adult Health
DX: I48.0 Paroxysmal atrial fibrillation (principal); Z79.899 Other long term (current) drug therapy
CPT/HCPCS: 36415; 80048

== ENCOUNTER 2020-06-05 14:12 | Outpatient (CLI) | payer OTHER | END 2020-06-05 21:09 | disposition home or self-care (01) | LOC: LABW 14:12 | PROVIDERS: ATTEND Nurse Practitioner Adult Health | DX: I48.0 Paroxysmal atrial fibrillation (principal); Z79.899 Other long term (current) drug therapy | CPT/HCPCS: 36415; 85610 ==

== ENCOUNTER 2020-06-14 09:34 | Outpatient (CLI) | payer OTHER | END 2020-06-14 19:18 | disposition home or self-care (01) | LOC: LABW 09:34 | PROVIDERS: ATTEND Nurse Practitioner Adult Health | DX: I48.0 Paroxysmal atrial fibrillation (principal); Z79.899 Other long term (current) drug therapy | CPT/HCPCS: 36415; 85610 ==

== ENCOUNTER 2020-06-28 11:25 | Outpatient (CLI) | payer OTHER | END 2020-06-28 18:51 | disposition home or self-care (01) | LOC: LABW 11:25 | PROVIDERS: ATTEND Specialist | DX: I48.0 Paroxysmal atrial fibrillation (principal); Z79.899 Other long term (current) drug therapy | CPT/HCPCS: 36415; 85610 ==

== ENCOUNTER 2020-07-05 10:46 | Outpatient (CLI) | payer OTHER | END 2020-07-05 19:01 | disposition home or self-care (01) | LOC: LABW 10:46 | PROVIDERS: ATTEND Nurse Practitioner Adult Health | DX: I48.0 Paroxysmal atrial fibrillation (principal); Z79.899 Other long term (current) drug therapy | CPT/HCPCS: 36415; 85610 ==

== ENCOUNTER 2020-07-12 09:33 | Outpatient (CLI) | payer OTHER ==
[2020-07-12 10:29] LABS: POTASSIUM 4.4 mmol/L (3.6-5.2)
[2020-07-12 10:32] LABS: PLATELET COUNT 182 K/uL (142-355)
== END 2020-07-12 23:59 | disposition home or self-care (01) ==
LOC: LABW 09:33
PROVIDERS: ATTEND Nurse Practitioner Family
DX: I48.0 Paroxysmal atrial fibrillation (principal); Z79.899 Other long term (current) drug therapy; I10 Essential (primary) hypertension; E78.49 Other hyperlipidemia; K21.9 Gastro-esophageal reflux disease without esophagitis; R06.02 Shortness of breath; E66.9 Obesity, unspecified; N40.0 Benign prostatic hyperplasia without lower urinary tract symptoms
CPT/HCPCS: 36415; 80053; 80061; 81000; 82043; 82570; 83036; 84153; 84439; 84443; 85027; 85610

== ENCOUNTER 2020-07-17 16:32 | Emergency (ER) | payer OTHER ==
[~2020-07-17] VITALS: Ht 162.6 cm; Wt 87.5 kg
[2020-07-17 16:45] VITALS: BP 95/79; TEMP 97.8
[2020-07-17 17:07] LABS: PLATELET COUNT 159 K/uL (142-355)
[2020-07-17 17:20] LABS: POTASSIUM 4.5 mmol/L (3.6-5.2)
[2020-07-17 17:53] LABS: PARTIAL THROMBOPLASTIN TIME 38.8 SECONDS (24.5-33.6)
== END 2020-07-17 18:38 | disposition home or self-care (01) ==
LOC: ED 16:32
PROVIDERS: Hospitalist
PROC: 2W2QX4Z Dressing of Right Lower Leg using Bandage (ICD-10-PCS; principal; 2020-07-17)
DX: T24.301A Burn of third degree of unspecified site of right lower limb, except ankle and foot, initial encounter (principal); T31.0 Burns involving less than 10% of body surface; I50.9 Heart failure, unspecified; X08.8XXA Exposure to other specified smoke, fire and flames, initial encounter; Y92.098 Other place in other non-institutional residence as the place of occurrence of the external cause
CPT/HCPCS: 80048; 80162; 85027; 85610; 85730; 90471; 90715; 96365; 96375; 99284; J1170; J2405; J3370

== ENCOUNTER 2020-07-26 10:00 | Outpatient (CLI) | payer OTHER | END 2020-07-26 23:00 | disposition home or self-care (01) | LOC: LABW 10:00 | PROVIDERS: ATTEND Nurse Practitioner Adult Health | DX: I48.0 Paroxysmal atrial fibrillation (principal); Z79.899 Other long term (current) drug therapy | CPT/HCPCS: 36415; 85610 ==

== ENCOUNTER 2020-08-02 10:38 | Outpatient (CLI) | payer OTHER | END 2020-08-02 19:34 | disposition home or self-care (01) | LOC: LABW 10:38 | PROVIDERS: ATTEND Nurse Practitioner Adult Health | DX: E78.2 Mixed hyperlipidemia (principal); Z79.899 Other long term (current) drug therapy; I48.0 Paroxysmal atrial fibrillation | CPT/HCPCS: 36415; 80061; 80076; 84436; 84443; 84479; 85610 ==

== ENCOUNTER 2020-08-06 10:13 | Outpatient (CLI) | payer OTHER | END 2020-08-06 23:02 | disposition home or self-care (01) | LOC: US 10:13 | PROVIDERS: ATTEND Nurse Practitioner Family | DX: T24.291A Burn of second degree of multiple sites of right lower limb, except ankle and foot, initial encounter (principal); E78.49 Other hyperlipidemia; R74.8 Abnormal levels of other serum enzymes; D72.818 Other decreased white blood cell count; R17 Unspecified jaundice; R79.89 Other specified abnormal findings of blood chemistry ==

== ENCOUNTER 2020-08-09 09:15 | Outpatient (CLI) | payer OTHER | END 2020-08-09 21:48 | disposition home or self-care (01) | LOC: LABW 09:15 | PROVIDERS: ATTEND Nurse Practitioner Adult Health | DX: I48.0 Paroxysmal atrial fibrillation (principal); Z79.899 Other long term (current) drug therapy | CPT/HCPCS: 36415; 85610 ==

== ENCOUNTER 2020-08-23 08:58 | Outpatient (CLI) | payer OTHER | END 2020-08-23 20:53 | disposition home or self-care (01) | LOC: LABW 08:58 | PROVIDERS: ATTEND Nurse Practitioner Adult Health | DX: I48.0 Paroxysmal atrial fibrillation (principal); Z79.899 Other long term (current) drug therapy | CPT/HCPCS: 36415; 85610 ==

== ENCOUNTER 2020-09-13 10:42 | Outpatient (CLI) | payer OTHER | END 2020-09-13 19:24 | disposition home or self-care (01) | LOC: LABW 10:42 | PROVIDERS: ATTEND Nurse Practitioner Adult Health | DX: I48.0 Paroxysmal atrial fibrillation (principal); Z79.899 Other long term (current) drug therapy | CPT/HCPCS: 36415; 85610 ==

== ENCOUNTER 2020-09-20 09:14 | Outpatient (CLI) | payer OTHER ==
[2020-09-20 09:40] LABS: PLATELET COUNT 156 K/uL (142-355)
[2020-09-20 10:07] LABS: POTASSIUM 4.5 mmol/L (3.6-5.2)
== END 2020-09-20 21:46 | disposition home or self-care (01) ==
LOC: LABW 09:14
PROVIDERS: ATTEND Internal Medicine
DX: I48.0 Paroxysmal atrial fibrillation (principal); Z79.899 Other long term (current) drug therapy; N18.31 Chronic kidney disease, stage 3a; R53.83 Other fatigue; E53.8 Deficiency of other specified B group vitamins
CPT/HCPCS: 36415; 80053; 81000; 82306; 82330; 82570; 82607; 82728; 82746; 83540; 83550; 83735; 83970; 84100; 84155; 84402; 84403; 84439; 84443; 85027; 85610; 85652; 86038

== ENCOUNTER 2020-10-11 09:24 | Outpatient (CLI) | payer OTHER | END 2020-10-11 21:19 | disposition home or self-care (01) | LOC: LABW 09:24 | PROVIDERS: ATTEND Nurse Practitioner Adult Health | DX: I48.0 Paroxysmal atrial fibrillation (principal); Z79.899 Other long term (current) drug therapy | CPT/HCPCS: 36415; 85610 ==

== ENCOUNTER 2020-10-18 08:36 | Outpatient (CLI) | payer OTHER | END 2020-10-18 20:52 | disposition home or self-care (01) | LOC: LABW 08:36 | PROVIDERS: ATTEND Nurse Practitioner Adult Health | DX: I48.0 Paroxysmal atrial fibrillation (principal); Z79.899 Other long term (current) drug therapy | CPT/HCPCS: 36415; 85610 ==

== ENCOUNTER 2020-10-25 09:28 | Outpatient (CLI) | payer OTHER | END 2020-10-25 21:47 | disposition home or self-care (01) | LOC: LABW 09:28 | PROVIDERS: ATTEND Nurse Practitioner Adult Health | DX: I48.91 Unspecified atrial fibrillation (principal); Z09 Encounter for follow-up examination after completed treatment for conditions other than malignant neoplasm | CPT/HCPCS: 36415; 85610 ==

== ENCOUNTER 2020-11-15 09:48 | Outpatient (CLI) | payer OTHER | END 2020-11-15 22:18 | disposition home or self-care (01) | LOC: LABW 09:48 | PROVIDERS: ATTEND Nurse Practitioner Adult Health | DX: I48.0 Paroxysmal atrial fibrillation (principal); Z79.899 Other long term (current) drug therapy | CPT/HCPCS: 36415; 85610 ==

== ENCOUNTER 2020-11-22 11:09 | Outpatient (CLI) | payer OTHER | END 2020-11-22 22:58 | disposition home or self-care (01) | LOC: LABW 11:09 | PROVIDERS: ATTEND Nurse Practitioner Adult Health | DX: I48.0 Paroxysmal atrial fibrillation (principal); Z79.899 Other long term (current) drug therapy | CPT/HCPCS: 36415; 85610 ==

== ENCOUNTER 2020-11-28 10:21 | Outpatient (CLI) | payer OTHER ==
[2020-11-28 11:06] LABS: PLATELET COUNT 169 K/uL (142-355)
[2020-11-28 11:14] LABS: POTASSIUM 4.3 mmol/L (3.6-5.2)
== END 2020-11-28 22:47 | disposition home or self-care (01) ==
LOC: LABW 10:21
PROVIDERS: ATTEND Nurse Practitioner Family
DX: R10.84 Generalized abdominal pain (principal)
CPT/HCPCS: 36415; 80053; 81000; 82150; 83690; 85027; 87088

== ENCOUNTER 2020-11-29 10:59 | Outpatient (CLI) | payer OTHER | END 2020-11-29 20:06 | disposition home or self-care (01) | LOC: LABW 10:59 | PROVIDERS: ATTEND Nurse Practitioner Adult Health | DX: I48.91 Unspecified atrial fibrillation (principal); Z79.899 Other long term (current) drug therapy | CPT/HCPCS: 36415; 85610 ==

== ENCOUNTER 2020-12-20 09:12 | Outpatient (CLI) | payer OTHER | END 2020-12-20 17:00 | disposition home or self-care (01) | LOC: LABW 09:12 | PROVIDERS: ATTEND Nurse Practitioner Adult Health | DX: I48.91 Unspecified atrial fibrillation (principal); Z79.899 Other long term (current) drug therapy | CPT/HCPCS: 36415; 85610 ==

== ENCOUNTER 2020-12-27 09:03 | Outpatient (CLI) | payer OTHER | END 2020-12-27 23:00 | disposition home or self-care (01) | LOC: LABW 09:03 | PROVIDERS: ATTEND Nurse Practitioner Adult Health | DX: I48.91 Unspecified atrial fibrillation (principal); Z51.81 Encounter for therapeutic drug level monitoring | CPT/HCPCS: 36415; 85610 ==

== ENCOUNTER 2021-01-03 09:31 | Outpatient (CLI) | payer OTHER | END 2021-01-03 21:55 | disposition home or self-care (01) | LOC: LABW 09:31 | PROVIDERS: ATTEND Nurse Practitioner Adult Health | DX: I48.91 Unspecified atrial fibrillation (principal); Z79.899 Other long term (current) drug therapy | CPT/HCPCS: 36415; 85610 ==

== ENCOUNTER 2021-01-18 12:04 | Outpatient (CLI) | payer OTHER | END 2021-01-18 20:24 | disposition home or self-care (01) | LOC: LABW 12:04 | PROVIDERS: ATTEND Nurse Practitioner Adult Health | DX: I48.91 Unspecified atrial fibrillation (principal); Z79.899 Other long term (current) drug therapy | CPT/HCPCS: 36415; 85610 ==

== ENCOUNTER 2021-01-23 13:06 | Outpatient (CLI) | payer OTHER | END 2021-01-23 22:08 | disposition home or self-care (01) | LOC: RESP 13:06 | PROVIDERS: ATTEND Specialist | DX: R06.09 Other forms of dyspnea (principal); I42.8 Other cardiomyopathies ==

== ENCOUNTER 2021-02-05 11:53 | Outpatient (CLI) | payer OTHER ==
[2021-02-05 12:03] LABS: PLATELET COUNT 181 K/uL (142-355)
[2021-02-05 12:15] LABS: POTASSIUM 4.1 mmol/L (3.6-5.2)
== END 2021-02-05 19:00 | disposition home or self-care (01) ==
LOC: LABW 11:53
PROVIDERS: ATTEND Surgery
DX: K80.20 Calculus of gallbladder without cholecystitis without obstruction (principal); Z09 Encounter for follow-up examination after completed treatment for conditions other than malignant neoplasm
CPT/HCPCS: 36415; 80053; 82378; 85027

== ENCOUNTER 2021-02-14 11:52 | Outpatient (CLI) | payer OTHER | END 2021-02-14 19:07 | disposition home or self-care (01) | LOC: LABW 11:52 | PROVIDERS: ATTEND Nurse Practitioner Adult Health | DX: I48.91 Unspecified atrial fibrillation (principal); Z51.81 Encounter for therapeutic drug level monitoring | CPT/HCPCS: 36415; 85610 ==

== ENCOUNTER 2021-03-08 18:24 | Observation (INO) | payer OTHER ==
[~2021-03-08] VITALS: Ht 162.6 cm; Wt 77.1 kg
[2021-03-08] VITALS (11 sets, daily range): BP systolic 92–106; BP diastolic 53–80; TEMP 98
[2021-03-08 18:52] LABS: PLATELET COUNT 183 K/uL (142-355)
[2021-03-08 18:59] LABS: POTASSIUM 3.6 mmol/L (3.6-5.2); SODIUM 145 mmol/L (136-145)
[2021-03-08 19:22] LABS: PARTIAL THROMBOPLASTIN TIME 37.4 SECONDS (24.5-33.6)
[2021-03-09] MEDS ORDERED: DIGO0.1230 PO (00:12)
[2021-03-09] MEDS ORDERED: CARV12.5 PO (00:14)
[2021-03-09] MEDS ORDERED: OMEPRAZOLE DR20 MG PO (00:15)
[2021-03-09] MEDS ORDERED: K-TAB20 MEQ PO (00:18)
[2021-03-09] MEDS ORDERED: PRAVACHOL20 MG PO (00:23)
[2021-03-09] MEDS ORDERED: ISOS30TA17 PO (00:24)
[2021-03-09] MEDS ORDERED: FURO40TA93 PO (00:25)
[2021-03-09] MEDS ORDERED: JANTOVEN5 MG PO (00:27)
[2021-03-09] MEDS ORDERED: COZAAR100 MG PO (00:28)
[2021-03-09] MEDS ORDERED: AMIODARONE HYD200 MG PO (00:30)
[2021-03-09 03:00] VITALS: BP 80/55; TEMP 96.1; Ht 162.6 cm; Wt 77.1 kg
[2021-03-09 04:29] VITALS: BP 97/69; TEMP 97.6
[2021-03-09 08:00] VITALS: BP 125/55; TEMP 98
[2021-03-09 08:16] LABS: PLATELET COUNT 189 K/uL (142-355); POTASSIUM 4.4 mmol/L (3.6-5.2)
[2021-03-09 12:00] VITALS: BP 103/73; TEMP 97.7
[2021-03-09 16:00] VITALS: BP 101/76; TEMP 97.6
[2021-03-09 20:00] VITALS: BP 93/66; TEMP 96.6
[2021-03-10 00:06] VITALS: BP 99/73; TEMP 97.4
[2021-03-10 04:00] VITALS: BP 96/55; TEMP 97.5
[2021-03-10 05:41] LABS: PLATELET COUNT 198 K/uL (142-355)
[2021-03-10 06:31] LABS: POTASSIUM 5.3 mmol/L (3.6-5.2)
[2021-03-10 06:56] LABS: PARTIAL THROMBOPLASTIN TIME 38.2 SECONDS (24.5-33.6)
[2021-03-10 08:00] VITALS: BP 116/79; TEMP 97.9
[2021-03-10 12:30] VITALS: BP 91/69; TEMP 97.5
[2021-03-10 16:00] VITALS: BP 105/84; TEMP 98.1
[2021-03-10 20:00] VITALS: BP 109/81; TEMP 98.4
[2021-03-11] VITALS (7 sets, daily range): BP systolic 82–99; BP diastolic 50–73; TEMP 97.3–98.6
[2021-03-11 05:44] LABS: PLATELET COUNT 190 K/uL (142-355)
[2021-03-11 06:06] LABS: POTASSIUM 5.1 mmol/L (3.6-5.2)
[2021-03-12 03:47] VITALS: BP 101/72; TEMP 98.7
[2021-03-12 04:41] LABS: PLATELET COUNT 189 K/uL (142-355)
[2021-03-12 05:21] LABS: POTASSIUM 3.8 mmol/L (3.6-5.2)
[2021-03-12 08:00] VITALS: BP 93/61; TEMP 98
== END 2021-03-12 14:00 | disposition home or self-care (01) ==
LOC: ED 18:24 → MED/SURG 21:30
PROVIDERS: Family Medicine; ADMIT Family Medicine; ATTEND Family Medicine
DX: R07.89 Other chest pain (principal); E78.49 Other hyperlipidemia; R00.1 Bradycardia, unspecified; I95.89 Other hypotension; I48.91 Unspecified atrial fibrillation; K21.9 Gastro-esophageal reflux disease without esophagitis; I25.2 Old myocardial infarction; J44.9 Chronic obstructive pulmonary disease, unspecified; T45.515A Adverse effect of anticoagulants, initial encounter; N17.8 Other acute kidney failure; E87.5 Hyperkalemia; K76.1 Chronic passive congestion of liver; D50-D89 Diseases of the blood and blood-forming organs and certain disorders involving the immune mechanism; I13.0 Hypertensive heart and chronic kidney disease with heart failure and stage 1 through stage 4 chronic kidney disease, or unspecified chronic kidney disease; N18.32 Chronic kidney disease, stage 3b; I50.22 Chronic systolic (congestive) heart failure
CPT/HCPCS: 36415; 80053; 80162; 82550; 83735; 83880; 84100; 84443; 84484; 85027; 85610; 85730; 87635; 93005; 96374; 96376; 99220; 99284; G0378; J0461; J1940; U0003

== ENCOUNTER 2021-03-14 09:41 | Outpatient (CLI) | payer OTHER ==
[~2021-03-14 09:41] MED LIST changes: +AMIODARONE HYD200 MG PO; +COZAAR100 MG PO; +DIGO0.1230 PO; +FURO40TA93 PO; +ISOS30TA17 PO; +JANTOVEN5 MG PO; +OMEPRAZOLE DR20 MG PO; +PRAVACHOL20 MG PO
== END 2021-03-14 19:18 | disposition home or self-care (01) ==
LOC: LABW 09:41
PROVIDERS: ATTEND Nurse Practitioner Adult Health
DX: I48.91 Unspecified atrial fibrillation (principal); Z79.899 Other long term (current) drug therapy; I25.10 Atherosclerotic heart disease of native coronary artery without angina pectoris; Z79.01 Long term (current) use of anticoagulants; N18.30 Chronic kidney disease, stage 3 unspecified; E78.49 Other hyperlipidemia; I12.9 Hypertensive chronic kidney disease with stage 1 through stage 4 chronic kidney disease, or unspecified chronic kidney disease
CPT/HCPCS: 36415; 85610

== ENCOUNTER 2021-03-18 11:54 | Outpatient (CLI) | payer OTHER | END 2021-03-18 20:11 | disposition home or self-care (01) | LOC: RAD 11:54 | PROVIDERS: ATTEND Nurse Practitioner Family | DX: R06.02 Shortness of breath (principal); Z51.81 Encounter for therapeutic drug level monitoring; R60.0 Localized edema; I42.8 Other cardiomyopathies; N18.30 Chronic kidney disease, stage 3 unspecified; I48.91 Unspecified atrial fibrillation; I12.9 Hypertensive chronic kidney disease with stage 1 through stage 4 chronic kidney disease, or unspecified chronic kidney disease; Z79.899 Other long term (current) drug therapy ==

== ENCOUNTER 2021-03-19 10:23 | Outpatient (CLI) | payer OTHER ==
--- NOTE | 2021-03-19 15:48 | NUR ---
Follow up with patients Mya. She says that he is doing good, still having some SOB. He was at Dr. Rojo offices at this time for follow up appointment that was scheduled prior to discharge. She asked about his medications that he had brought, and was informed that nursing and UR had tried to reach them on several occasions without success. She was instructed to come to main entrance of hospital and call and let nursing know that she was there and they would bring his medications out to her.
== END 2021-03-19 20:10 | disposition home or self-care (01) ==
LOC: LABW 10:23
PROVIDERS: ATTEND Nurse Practitioner Adult Health
DX: I48.91 Unspecified atrial fibrillation (principal); Z79.899 Other long term (current) drug therapy
CPT/HCPCS: 36415; 85610